=== PATIENT | male | born 1945 | race Caucasian/White ===

== ENCOUNTER → 2018-02-22 | Outpatient (CLI) | payer OTHER | END | disposition home or self-care (01) | LOC: PCVCCLINIC 14:30 | PROVIDERS: ATTEND Internal Medicine Cardiovascular Disease | DX: I25.10 Atherosclerotic heart disease of native coronary artery without angina pectoris (principal); R93.1 Abnormal findings on diagnostic imaging of heart and coronary circulation; I10 Essential (primary) hypertension; R60.9 Edema, unspecified; E78.00 Pure hypercholesterolemia, unspecified; E78.5 Hyperlipidemia, unspecified | CPT/HCPCS: 93005; G0463 ==

== ENCOUNTER → 2018-03-03 | Outpatient (CLI) | payer OTHER ==
[~2018-03-03] MED LIST: REGADENOSON 0.4 MG/5 ML DISP.SYRIN. IV ONE
--- NOTE | 2018-03-07 13:29 | PCVCIMAG ---
APPROVED REPORT Imaging Protocol: Rest Tc-99m/Stress Tc-99m 1 day Study performed: 03/03/2018 13:34:38 Indication: High Ca Score Patient Location: In-Patient Stress Nurse: Destiny Foss RN NH Tech:Lila AlemanMARK ashMT Ht: 6 ft 0 in Wt: 220 lbs BSA: 2.22 m2 HR: 62 bpm BP: 167/77 mmHg BMI: 29.83 Rhythm: Sinus Rhythm Medical History Medical History: HTN, Hyperlipidemia, Diabetes, Former Smoker Medications: Atorvastatin, Lisinopril, Janumet Allergies: Codeine, Motrin Cardiac Risk Factors: Age Pretest Chest Pain Characteristics: No chest pain Resting Data Rest SPECT myocardial perfusion imaging was performed in supine position 45 minutes following the intravenous injection of 11.3 mCi of Tc-99m Sestamibi. Time of rest injection: 1300 Administration Route: IV Administration Site: Right Hand Pharmacologic Stress Pharmacologic stress test was performed by injecting Regadenoson 0.4 mg IV push over 10-15 seconds immediately followed by the intravenous injection of 35.8 mCi of Tc-99m Sestamibi. Time of stress injection: 1400 Date: 03/03/2018 Administration Route: IV Administration Site: Right Hand Gated Stress SPECT was performed 45 minutes after stress injection. The images were gated to evaluate regional wall motion and calculate left ventricular ejection fraction. Stress Test Details Stress Test: Pharmacologic stress testing performed using 0.4 mg of regadenoson per 5 mL given IV over 10 seconds. Reason for pharmacologic stress test: physical limitation, uses a cane. HRMax Heart Rate (APMHR): 146 bpm Resting HR: 62 bpmTarget HR (85% APMHR): 124 bpm Max HR Achieved: 85 bpm % of APMHR: 58 Recovery HR: 77 bpm BP Resting BP: 167/77 mmHg Recovery BP: 149/70 mmHg ECG Resting ECG: Sinus Rhythm Stress ECG: Sinus Rhythm ST Change: Non-ischemic Recovery ECG: Sinus Rhythm Clinical Reason for Termination: Completed protocol Stress Symptoms: Chest tightness, Dyspnea, Lightheaded Exercise duration: 0 min 55 sec Overall Exercise Capacity for Age: Average Symptoms resolved with caffeine. Study Quality Study: Good Study Data Post stress, the left ventricular ejection was 81%.. SSS: 0 SRS: 0 SDS: 0 TID = 0.98. Perfusion Normal left ventricular perfusion. Normal perfusion on both the stress and rest images. Wall Motion Normal left ventricular wall motion. Nuclear Conclusion ECG Findings: negative for ischemia Clinical Findings: non-diagnostic Nuclear Findings: negative for ischemia Exercise Capacity: not assessed Left Ventricular Function: normal Risk Study: low This study is of low probability for inducible ischemia or prior infarct. Normal global and segmental LV systolic function.
== END | disposition home or self-care (01) ==
LOC: PCVCIMAG 12:43
PROVIDERS: ATTEND Internal Medicine Cardiovascular Disease
DX: I25.119 Atherosclerotic heart disease of native coronary artery with unspecified angina pectoris (principal); E11.9 Type 2 diabetes mellitus without complications; I10 Essential (primary) hypertension; Z87.891 Personal history of nicotine dependence
CPT/HCPCS: 78452; 93017; A9500; J2785

== ENCOUNTER → 2018-03-08 | Outpatient (CLI) | payer OTHER ==
--- NOTE | 2018-03-08 10:06 | PCVCIMAG ---
APPROVED REPORT Study performed: 03/08/2018 08:40:37 EXAM: Comprehensive 2D, Doppler, and color-flow Echocardiogram Patient Location: Echo lab Status: routine BSA: 2.24 HR: 65 bpmBP: 152/70 mmHg Rhythm: NSR Other Information Study Quality: Adequate Risk Factors: Cardiac Risk Factors: HTN Indications elevated calcium score, edema 2D Dimensions IVSd: 12.20 (7-11mm) LVDd: 45.31 mm PWd: 12.59 (7-11mm) LVDs: 28.87 (25-40mm) Left Atrium: 41.58 (27-40mm) Aortic Root: 35.27 mm LV Single Plane 4CH: 57.33 % LV Single Plane 2CH: 60.37 % Biplane EF: 59.3 % Volumes Left Atrial Volume (Systole) Single Plane 4CH: 72.06 mLSingle Plane 2CH: 76.92 mL LA ESV Index: 36.00 mL/m2 Aortic Valve AoV Peak Clayton.: 1.42 m/s AO Peak Gr.: 8.01 mmHgLVOT Max P.37 mmHg LVOT Max V: 1.05 m/s Mitral Valve E/A Ratio: 1.1 MV Decel. Time: 203.71 ms MV E Max Clayton.: 0.69 m/s MV A Clayton.: 0.63 m/s MV PHT: 59.08 ms IVRT: 103.81 ms Pulmonary Valve PV Peak Clayton.: 1.03 m/sPV Peak Gr.: 4.23 mmHg Pulmonary Vein P Vein S: 0.28 m/sP Vein A: 0.31 m/s P Vein D: 0.43 m/sP Vein A Dur.: 121.1 msec P Vein S/D Ratio: 0.65 Tricuspid Valve TR Peak Clayton.: 2.35 m/s TR Peak Gr.: 22.03 mmHg TV Vmax: 0.46 m/s Left Ventricle The left ventricle is normal size. There is normal LV segmental wall motion. Mild concentric left ventricular hypertrophy. Left ventricular systolic function is normal. The left ventricular ejection fraction is within the normal range. LVEF is 55-60%. Grade I - abnormal relaxation pattern. Right Ventricle The right ventricle is normal size. The right ventricular systolic function is normal. Atria Left atrium is mildly dilated. The right atrium size is normal. Aortic Valve The aortic valve is normal in structure. No aortic regurgitation is present. There is no aortic valvular stenosis. Mitral Valve The mitral valve is normal in structure. Mild mitral regurgitation. No evidence of mitral valve stenosis. Tricuspid Valve The tricuspid valve is normal in structure. Mild tricuspid regurgitation with PAP of 29 mmHg. Pulmonic Valve The pulmonary valve is normal in structure. Trace pulmonic regurgitation. Great Vessels The aortic root is normal in size. IVC is normal in size and collapses >50% with inspiration. Pericardium There is no pericardial effusion. There is no pleural effusion. <Conclusion> The left ventricle is normal size. Mild concentric left ventricular hypertrophy. Left ventricular systolic function is normal. Grade I - abnormal relaxation pattern. The right ventricle is normal size. Left atrium is mildly dilated. The aortic valve is normal in structure. Mild mitral regurgitation. Mild tricuspid regurgitation with PAP of 29 mmHg.
== END | disposition home or self-care (01) ==
LOC: PCVCIMAG 07:40
PROVIDERS: ATTEND Internal Medicine Cardiovascular Disease
DX: I08.1 Rheumatic disorders of both mitral and tricuspid valves (principal); I25.119 Atherosclerotic heart disease of native coronary artery with unspecified angina pectoris; I10 Essential (primary) hypertension; R93.1 Abnormal findings on diagnostic imaging of heart and coronary circulation; R60.0 Localized edema; E78.5 Hyperlipidemia, unspecified
CPT/HCPCS: 93306

== ENCOUNTER → 2019-03-16 | Outpatient (CLI) | payer OTHER | END | disposition home or self-care (01) | LOC: PCVCCLINIC 15:19 | PROVIDERS: ATTEND Internal Medicine Cardiovascular Disease | DX: I25.10 Atherosclerotic heart disease of native coronary artery without angina pectoris (principal); I10 Essential (primary) hypertension; E78.00 Pure hypercholesterolemia, unspecified; E11.9 Type 2 diabetes mellitus without complications; Z88.5 Allergy status to narcotic agent; Z88.6 Allergy status to analgesic agent; Z79.82 Long term (current) use of aspirin; Z79.899 Other long term (current) drug therapy; Z87.891 Personal history of nicotine dependence | CPT/HCPCS: 93005; G0463 ==

== ENCOUNTER → 2019-03-26 | Outpatient (CLI) | payer OTHER ==
--- NOTE | 2019-03-26 13:13 | PCVCIMAG ---
EXAM: BILATERAL LOWER EXTREMITY ARTERIAL DUPLEX INDICATION: Peripheral Arterial Disease. Leg pain. FINDINGS: Right Leg: Satisfactory arterial waveforms throughout the common/profunda/superficial femoral, popliteal, anterior tibial, peroneal, and posterior tibial arteries. No flow limiting stenosis seen. Left Leg: Satisfactory arterial waveforms throughout the common/profunda/superficial femoral, popliteal, anterior tibial, peroneal, and posterior tibial arteries. No flow limiting stenosis seen. IMPRESSION: No flow limiting stenosis in the right lower extremity. No flow limiting stenosis in the left lower extremity. LOC:[id number]
== END | disposition home or self-care (01) ==
LOC: PCVCIMAG 11:04
PROVIDERS: ATTEND Internal Medicine Cardiovascular Disease
DX: I73.9 Peripheral vascular disease, unspecified (principal); E11.9 Type 2 diabetes mellitus without complications; E78.5 Hyperlipidemia, unspecified; I10 Essential (primary) hypertension; Z98.52 Vasectomy status; Z87.891 Personal history of nicotine dependence; Z88.5 Allergy status to narcotic agent; Z88.6 Allergy status to analgesic agent; Z72.89 Other problems related to lifestyle
CPT/HCPCS: 93925